=== PATIENT | male | born 1960 | race Two or more races ===

== ENCOUNTER 2018-07-13 10:07 | Outpatient (CLI) | payer BC ==
[2018-07-15] MEDS ORDERED: AVAPRO300 MG PO (11:54)
[2018-07-15] MEDS ORDERED: ZANTAC300 MG PO (11:55)
[2018-07-15] MEDS ORDERED: PROTONIX20 MG PO (11:55)
== END 2018-07-13 10:15 | disposition home or self-care (01) ==
LOC: RAD 501 10:07
DX: K60.1 Chronic anal fissure (principal); K62.5 Hemorrhage of anus and rectum; K59.09 Other constipation

== ENCOUNTER 2018-07-16 05:40 | Day surgery (SDC) | payer BC ==
[~2018-07-16 05:40] MED LIST: AVAPRO300 MG PO; PROTONIX20 MG PO; ZANTAC300 MG PO
[2018-07-16] MEDS ORDERED: COLACE100 MG PO (12:42)
[2018-07-16] MEDS ORDERED: PERCOCET 5-3251 EACH PO (12:42)
== END 2018-07-16 20:10 | disposition home or self-care (01) ==
LOC: CIR.AMB 05:40
DX: K60.1 Chronic anal fissure (principal)